=== PATIENT | female | born 1990 | race Caucasian/White ===

== ENCOUNTER 2017-01-27 16:50 | Emergency (ER) | payer OTHER ==
--- NOTE | 2017-01-27 17:33 | PHYS DOC ---
General Chief Complaint: VAGINAL BLEEDING Stated Complaint: VAGINAL BLEEDING Time Seen by MD: 17:10 Problems: (DONALD ALMENDAREZ DO) Time Seen by MD: 18:06 Problems: (ELIOT ROBERSON MD) History of Present Illness Initial Comments With heavy ED volume RN notifies me of 26/F 6wks gestation A1 who arrives to ED reportedly hemodynamically stable but in severe distress with low abdominal pain and heavy vaginal bleeding consistent with prior history of ectopic . Upon her report I review pt old record and order ectopic workup as US tech is getting ready to leave the building for home. Upon completion of orders I went to exam room to find that pt had just been taken back to US and unavailable for my evaluation. As such, I was unable to see pt prior to signing pt out to Dr Roberson at 1800 shift change. Old chart reveals pt blood type O+, RN reports pt had healthy baby born October this year. As pt is in US and time 1735 PE and further evaluation will likely be signed out to incoming ERP due to 1800 shift change. My historian was pt RN and old ED record. (DONALD ALMENDAREZ DO) Allergies: Coded Allergies: vancomycin (Verified Allergy, Intermediate, 01/27/17) Past Medical History Medical History: no pertinent history (DONALD ALMENDAREZ DO) Adult General Chief Complaint Chief Complaint: VAGINAL BLEEDING HPI HPI 26-year-old female who reports being 6 weeks by LMP however also reports having her last menstrual period that ended on the second of this month. She states that she thought she had a period through her . She presents today with vaginal bleeding and left lower quadrant abdominal pain that is sharp moderate intermittent and without alleviating factors. She does have a history of ectopic . I interviewed the patient in person and examine the patient. She reports mild nausea. Review of systems is negative for fevers chills cough chest pain shortness of breath. All other review of systems is negative unless otherwise noted in history of present illness. ED course: 26-year-old female presenting to the emergency department with abdominal pain and vaginal bleeding and . Patient has a normal heart rate. Afebrile. Pertinent physical exam findings show soft nontender abdomen. No rebound tenderness or guarding. Patient is pleasant nontoxic appearing and does not appear to be any pain on examination and history. Blood work obtained along with Rh status and ultrasound transvaginally. Ultrasound does not show any signs of intrauterine however correlating beta hCG is below the discriminatory zone. Otherwise patient is Rh+. Urinalysis negative for infection but does have bacteriuria so we'll initiate the patient on Keflex. Repeat abdominal exam continues to so a soft nontender abdomen. Patient is well- appearing the examination room and her pain is improved. I recommend the patient follow up with an OB in the next 1-2 days for repeat beta hCG, repeat ultrasound and repeat abdominal exam. The patient was then discharged home in stable condition to follow up with their primary care physician over the next 2- 3 days. They were to return if their symptoms worsened or if they were concerned for any reason. [id number] discharge instructions and return precautions were given. Patient's questions were answered to their satisfaction. Patient is comfortable plan. (ELIOT ROBERSON MD) HPI Patient is a [age] year old [sex] who presents with [] (DONALD ALMENDAREZ DO) Review of Systems Review of Systems SEE ABOVE. (ELIOT ROBERSON MD) Review of Systems Constitutional: Denies fever or chills [] Eyes: Denies change in visual acuity, redness, or eye pain [] HENT: Denies nasal congestion or sore throat [] Respiratory: Denies cough or shortness of breath [] Cardiovascular: No additional information not addressed in HPI [] GI: Denies abdominal pain, nausea, vomiting, bloody stools or diarrhea [] : Denies dysuria or hematuria [] Musculoskeletal: Denies back pain or joint pain [] Integument: Denies rash or skin lesions [] Neurologic: Denies headache, focal weakness or sensory changes [] Endocrine: Denies polyuria or polydipsia [] (DONALD ALMENDAREZ DO) Allergies Allergies Allergies Coded Allergies Type Severity Reaction Last Updated Verified vancomycin Allergy Intermediate 01/27/17 Yes (DONALD ALMENDAREZ DO) Physical Exam Physical Exam SEE ABOVE Constitutional: Well developed, well nourished, no acute distress, non-toxic appearance. HENT: Normocephalic, atraumatic, bilateral external ears normal, oropharynx moist, no oral exudates, nose normal. [] Eyes: PERRLA, EOMI, conjunctiva normal, no discharge. Neck: Normal range of motion, no tenderness, supple, no stridor. [] Cardiovascular: Heart rate regular rhythm, no murmur [] Lungs & Thorax: Bilateral breath sounds clear to auscultation Abdomen: Bowel sounds normal, soft, no tenderness, no masses, no pulsatile masses. [] Skin: Warm, dry, no erythema, no rash. [] Back: No tenderness, no CVA tenderness. Extremities: No tenderness, no cyanosis, no clubbing, ROM intact, no edema. [] Neurologic: Alert and oriented X 3, normal motor function, normal sensory function, no focal deficits noted. [] Psychologic: Affect normal, judgement normal, mood normal. (ELIOT ROBERSON MD) Physical Exam Constitutional: Well developed, well nourished, no acute distress, non-toxic appearance. [] HENT: Normocephalic, atraumatic, bilateral external ears normal, oropharynx moist, no oral exudates, nose normal. [] Eyes: PERRLA, EOMI, conjunctiva normal, no discharge. [] Neck: Normal range of motion, no tenderness, supple, no stridor. [] Cardiovascular:Heart rate regular rhythm, no murmur [] Lungs & Thorax: Bilateral breath sounds clear to auscultation [] Abdomen: Bowel sounds normal, soft, no tenderness, no masses, no pulsatile masses. [] Skin: Warm, dry, no erythema, no rash. [] Back: No tenderness, no CVA tenderness. [] Extremities: No tenderness, no cyanosis, no clubbing, ROM intact, no edema. [] Neurologic: Alert and oriented X 3, normal motor function, normal sensory function, no focal deficits noted. [] Psychologic: Affect normal, judgement normal, mood normal. [] (DONALD ALMENDAREZ DO) Current Patient Data Vital Signs Vital Signs Date Time Temp Pulse Resp B/P (MAP) Pulse Ox O2 Delivery O2 Flow Rate FiO2 01/27/17 17:47 98.7 86 18 100 Room Air (DONALD ALMENDAREZ DO) Lab Results Laboratory Tests Test 01/27/17 17:25 01/27/17 18:55 White Blood Count 6.1 x10^3/uL (4.0-11.0) Red Blood Count 4.22 x10^6/uL (3.50-5.40) Hemoglobin 14.0 g/dL (12.0-15.5) Hematocrit 40.7 % (36.0-47.0) Mean Corpuscular Volume 97 fL (79-100) Mean Corpuscular Hemoglobin 33 pg (25-35) Mean Corpuscular Hemoglobin Concent 34 g/dL (31-37) Red Cell Distribution Width 13.3 % (11.5-14.5) Platelet Count 253 x10^3/uL (140-400) Neutrophils (%) (Auto) 65 % (31-73) Lymphocytes (%) (Auto) 28 % (24-48) Monocytes (%) (Auto) 7 % (0-9) Eosinophils (%) (Auto) 1 % (0-3) Basophils (%) (Auto) 0 % (0-3) Neutrophils # (Auto) 4.0 x10^3uL (1.8-7.7) Lymphocytes # (Auto) 1.7 x10^3/uL (1.0-4.8) Monocytes # (Auto) 0.4 x10^3/uL (0.0-1.1) Eosinophils # (Auto) 0.0 x10^3/uL (0.0-0.7) Basophils # (Auto) 0.0 x10^3/uL (0.0-0.2) Urine Collection Type Unknown Urine Color Yellow Urine Clarity Hazy Urine pH 7.5 Urine Specific Garrett 1.020 Urine Protein Neg (NEG-TRACE) Urine Glucose (UA) Neg mg/dL (NEG) Urine Ketones (Stick) Neg mg/dL (NEG) Urine Blood Large (NEG) Urine Nitrite Neg (NEG) Urine Bilirubin Neg (NEG) Urine Urobilinogen Dipstick 1 mg/dL (0.2 mg/dL) Urine Leukocyte Esterase Small (NEG) Urine RBC 1-2 /HPF (0-2) Urine WBC 5-10 /HPF (0-4) Urine Squamous Epithelial Cells Many /LPF Urine Bacteria Mod /HPF (0-FEW) Maternal Serum HCG Beta Subunit 424 mIU/mL (0-6) H Sodium Level 143 mmol/L (136-145) Potassium Level 4.1 mmol/L (3.5-5.1) Chloride Level 107 mmol/L (98-107) Carbon Dioxide Level 29 mmol/L (21-32) Anion Gap 7 (6-14) Blood Urea Nitrogen 13 mg/dL (7-20) Creatinine 0.6 mg/dL (0.6-1.0) Estimated GFR (Cockcroft-Gault) 119.9 Glucose Level 95 mg/dL (70-99) Calcium Level 8.7 mg/dL (8.5-10.1) Total Bilirubin 0.3 mg/dL (0.2-1.0) Direct Bilirubin 0.1 mg/dL (0.0-0.2) Aspartate Amino Transferase (AST) 29 U/L (15-37) Alanine Aminotransferase (ALT) 67 U/L (14-59) H Alkaline Phosphatase 83 U/L (46-116) Total Protein 6.6 g/dL (6.4-8.2) Albumin 3.6 g/dL (3.4-5.0) (DONALD ALMENDAREZ DO) EKG EKG [] (ELIOT ROBERSON MD) EKG [] (DONALD ALMENDAREZ DO) Radiology/Procedures Radiology/Procedures [] (ELIOT ROBERSON MD) Radiology/Procedures [] (DONALD ALMENDAREZ DO) Course & Med Decision Making Course & Med Decision Making Pertinent Labs and Imaging studies reviewed. (See chart for details) [] (ELIOT ROEBRSON MD) Course & Med Decision Making Pertinent Labs and Imaging studies reviewed. (See chart for details) [] (DONALD ALMENDAREZ DO) Dragon Disclaimer Dragon Disclaimer This chart was dictated in whole or in part using Voice Recognition software in a busy, high-work load, and often noisy Emergency Department environment. It may contain unintended and wholly unrecognized errors or omissions. (ELIOT ROBERSON MD) Dragon Disclaimer This chart was dictated in whole or in part using Voice Recognition software in a busy, high-work load, and often noisy Emergency Department environment. It may contain unintended and wholly unrecognized errors or omissions. (DONALD ALMENDAREZ DO) DONALD ALMENDAREZ DO Jan 27, 2017 17:33 ELIOT ROBERSON MD Jan 27, 2017 18:55
[2017-01-27 17:47] VITALS: BP 116/61
[2017-01-27 17:52] LABS: BASO % 0 % (0-3); EOS % 1 % (0-3); HEMATOCRIT 40.7 % (36.0-47.0); LYMPH # 1.7 x10^3/uL (1.0-4.8); LYMPH % 28 % (24-48); MEAN CORPUSCULAR HEMOGLOBIN 33 pg (25-35); MEAN CORPUSCULAR HGB CONC 34 g/dL (31-37); MEAN CORPUSCULAR VOLUME 97 fL (79-100); MONO # 0.4 x10^3/uL (0.0-1.1); MONO % 7 % (0-9); NEUT % 65 % (31-73); PLATELET COUNT 253 x10^3/uL (140-400); RED BLOOD COUNT 4.22 x10^6/uL (3.50-5.40); RED CELL DISTRIBUTION WIDTH 13.3 % (11.5-14.5); WHITE BLOOD COUNT 6.1 x10^3/uL (4.0-11.0)
--- NOTE | 2017-01-27 18:05 | RAD ---
OB ultrasound less than 14 weeks to include transabdominal and transvaginal imaging 01/27/2017 CLINICAL HISTORY: First trimester with vaginal bleeding. TECHNIQUE: Using the distended urinary bladder as a sonographic window, a real-time ultrasound examination of the pelvis was performed. Additionally in an attempt to better evaluate the uterus and adnexa, a transvaginal ultrasound study was performed. Multiple images were obtained. FINDINGS: The uterus is within normal limits in size and echogenicity. It measures 8.8 x 7.0 x 5.3 cm in longitudinal, transverse, and AP dimensions. The endometrial echo complex measures 7 mm in thickness which is within normal limits. No gestational sac is seen within the uterus. Both ovaries are within normal limits in size. The right ovary measures 5.7 x 3.5 x 2.8 cm in size. Within the right ovary a 2.5 cm simple cyst is seen. The left ovary measures 5.7 x 2.4 x 3.2 cm in size. Within the left ovary an anechoic structure with a thin septation is seen which measures 2.2 cm in greatest diameter. This may represent a hemorrhagic follicle. A small amount of free fluid is seen within the pelvis. IMPRESSION: Essentially negative study. No IUP is seen. These ultrasound findings could be seen with a very early IUP, missed spontaneous or possibly due to an occult ectopic . Clinical correlation and correlation with patient's serial beta hCG level is recommended. Electronically signed by: Bang Howe MD (01/27/2017 6:02 PM) [facility]
[2017-01-27 18:36] LABS: BACTERIA,URINE MOD /HPF (0-FEW); BILIRUBIN,URINE NEG (NEG); CLARITY,URINE HAZY; COLOR,URINE YELLOW; GLUCOSE,URINE NEG (NEG); NITRITE,URINE NEG (NEG); SQUAMOUS EPITHELIAL CELL,UR MANY /LPF; UROBILINOGEN,URINE 1 mg/dL (0.2 mg/dL)
[2017-01-27 19:23] LABS: ALBUMIN 3.6 g/dL (3.4-5.0); CALCIUM 8.7 mg/dL (8.5-10.1); CREATININE 0.6 mg/dL (0.6-1.0); DIRECT BILIRUBIN 0.1 mg/dL (0.0-0.2); GFR 119.9; POTASSIUM 4.1 mmol/L (3.5-5.1); TOTAL BILIRUBIN 0.3 mg/dL (0.2-1.0); TOTAL PROTEIN 6.6 g/dL (6.4-8.2)
== END 2017-01-27 19:52 | disposition home or self-care (01) ==
LOC: ER 16:50
DX: N93.9 Abnormal uterine and vaginal bleeding, unspecified (principal); R10.32 Left lower quadrant pain; Z88.1 Allergy status to other antibiotic agents
CPT/HCPCS: 36415; 76801; 80048; 80076; 81001; 84702; 85025; 86901; 87086; 99285-25